=== PATIENT | male | born 1975 | race Hispanic/Latino ===

== ENCOUNTER 2020-04-23 17:21 | Emergency (ER) | payer SELFPAY ==
[2020-04-23] MEDS ORDERED: TETANUS/DIPHTHERIA TOXOID [ADULT] 0.5 ML VIAL IM ONE (18:46)
== END 2020-04-23 19:47 | disposition home or self-care (01) ==
LOC: EDH 17:21
DX: S91.331A Puncture wound without foreign body, right foot, initial encounter (principal); Z88.0 Allergy status to penicillin; W26.8XXA Contact with other sharp object(s), not elsewhere classified, initial encounter; Y93.89 Activity, other specified; Y92.89 Other specified places as the place of occurrence of the external cause; Y99.8 Other external cause status
CPT/HCPCS: 73630; 90471; 90714

== ENCOUNTER 2023-08-01 15:48 | Emergency (ER) | payer BC ==
[~2023-08-01] VITALS: Ht 172.7 cm; Wt 127.0 kg
[2023-08-01 17:40] LABS: ADD UA MICROSCOPIC YES; APPEARANCE,URINE CLEAR (CLEAR); BILIRUBIN,URINE NEGATIVE (NEGATIVE); COLOR,URINE LIGHT-YELLOW (YELLOW); GLUCOSE, URINE (UA) >=1000 mg/dL (NEGATIVE); KETONES,URINE NEGATIVE (NEGATIVE); LEUKOCYTE ESTERASE ,URINE 250 Leu/uL (NEGATIVE); NITRATE,URINE NEGATIVE (NEGATIVE); PROTEIN,URINE NEGATIVE (NEGATIVE); UROBILINOGEN,URINE 0.2 mg/dL (0.2-1.0)
[2023-08-01 17:45] LABS: BACTERIA,URINE RARE /HPF (None Seen); MUCUS,URINE RARE LPF (None Seen); SQUAMOUS EPITHELIAL CELL,UR FEW /HPF (0-2)
[2023-08-01 19:50] VITALS: BP 168/84; PULSE 90; RESP 16; O2SAT 97
[2023-08-01] MEDS ORDERED: CLOT45CR62 TP (19:50)
[2023-08-01] MEDS ORDERED: CEPH500B PO (19:51)
== END 2023-08-01 19:59 | disposition home or self-care (01) ==
LOC: EDH 15:48
DX: N47.7 Other inflammatory diseases of prepuce (principal); E11.9 Type 2 diabetes mellitus without complications
CPT/HCPCS: 81001; 87088

== ENCOUNTER 2024-04-21 08:20 | Emergency (ER) | payer BC ==
[~2024-04-21] VITALS: Ht 167.6 cm; Wt 127.0 kg
[~2024-04-21 08:20] MED LIST: CEPH500B PO; CLOT45CR62 TP
[2024-04-21 08:22] VITALS: BP 153/77; PULSE 74; RESP 18
[2024-04-21 11:57] LABS: APPEARANCE,URINE CLEAR (CLEAR); BILIRUBIN,URINE NEGATIVE (NEGATIVE); COLOR,URINE YELLOW (YELLOW); GLUCOSE, URINE (UA) >=1000 mg/dL (NEGATIVE); KETONES,URINE NEGATIVE (NEGATIVE); LEUKOCYTE ESTERASE ,URINE MODERATE Leu/uL (NEGATIVE); NITRATE,URINE NEGATIVE (NEGATIVE); OCCULT BLOOD,URINE SMALL (NEGATIVE); PH,URINE 6.5 (5.0-8.0); PROTEIN,URINE NEGATIVE (NEGATIVE)
[2024-04-21 11:58] LABS: ADD UA MICROSCOPIC YES
[2024-04-21 12:37] LABS: BACTERIA,URINE None Seen /HPF (None Seen)
[2024-04-21] MEDS ORDERED: CLOT15CR5 TP (12:58)
[2024-04-21] MEDS ORDERED: METF-444 PO (12:58)
== END 2024-04-21 13:21 | disposition home or self-care (01) ==
LOC: EDH 08:20
DX: N48.1 Balanitis (principal); N47.7 Other inflammatory diseases of prepuce; E11.9 Type 2 diabetes mellitus without complications; E66.9 Obesity, unspecified; Z79.84 Long term (current) use of oral hypoglycemic drugs; Z79.2 Long term (current) use of antibiotics; Z79.899 Other long term (current) drug therapy; Z98.890 Other specified postprocedural states; Z68.30 Body mass index [BMI] 30.0-30.9, adult
CPT/HCPCS: 81001; 82948; 87086; 87491; 87591